=== PATIENT | female | born 1985 | race African-American/Black ===

== ENCOUNTER 2019-01-20 12:50 | Emergency (ER) | payer SELFPAY ==
[2019-01-20 13:17] VITALS: BMI 23.3
[2019-01-20 13:50] LABS: URINE APPEARANCE CLEAR; URINE BILIRUBIN NEGATIVE (NEGATIVE); URINE COLOR YELLOW; URINE GLUCOSE (UA) NEGATIVE (NEGATIVE); URINE KETONE TRACE (NEGATIVE); URINE LEUK ESTERASE NEGATIVE (NEGATIVE); URINE NITRITE NEGATIVE (NEGATIVE); URINE PROTEIN NEGATIVE (NEGATIVE)
[2019-01-20] MEDS ORDERED: SODIUM CHLORIDE 1,000 ML IV STA (13:56)
[2019-01-20 14:06] LABS: BASO % 0.8 % (0-2.0); EOS % 1.8 % (0-4.5); HEMATOCRIT 40.6 % (32.4-45.2); HEMOGLOBIN 13.6 GM/dL (10.7-15.3); LYMPH % 30.2 % (8-40); MCH 29.5 pg (25.7-33.7); MCHC 33.6 g/dl (32.0-36.0); MEAN PLT VOLUME 8.6 fl (7.5-11.1); MONO % 5.6 % (3.8-10.2); NEUT % 61.6 % (42.8-82.8); PLATELET COUNT 318 K/MM3 (134-434); RBC 4.61 M/mm3 (3.60-5.2); RDW 13.4 % (11.6-15.6); WHITE BLOOD COUNT 6.7 K/mm3 (4.0-10.0)
--- NOTE | 2019-01-20 14:33 | PDOC ---
History of Present Illness - General Chief Complaint: Pain, Acute Stated Complaint: L ABDOMINAL PAIN Time Seen by Provider: 01/20/19 13:33 History Source: Patient Exam Limitations: No Limitations - History of Present Illness Travel History: No Initial Comments: 01/20/19 14:03 33-year-old female presents to ED with complaints of right suprapubic pain for the past week worsening in severity present even when resting. Patient states took a test 1-2 weeks ago which was positive since she missed her menstrual cycle which was due the . Patient states has not seen [facility] [employer] [facility] nor has she had an ultrasound for this . Patient denies any vaginal bleeding, back pain urinary complaints, vaginal discharge. Patient denies history of ectopic Timing/Duration: reports: getting worse Quality: reports: mild, cramping, sharpness Abdominal Pain Onset Location: reports: suprapubic Pain Radiation: reports: RLQ, flank Activities at Onset: reports: none Aggravating Factors: improves with: None Alleviating Factors: improves with: None Past History - Travel Traveled outside of the country in the last 30 days: No Close contact w/someone who was outside of country & ill: No - Past Medical History Allergies/Adverse Reactions: Allergies Allergy/AdvReac Type Severity Reaction Status Date / Time diphenhydramine Allergy Verified 01/20/19 13:18 [From Benadryl] doxycycline Allergy Verified 01/20/19 13:18 latex Allergy Verified 01/20/19 13:18 metoclopramide [From Reglan] Allergy Verified 01/20/19 13:18 peanut Allergy Verified 01/20/19 13:18 watermelon Allergy Verified 01/20/19 13:18 COPD: No - Reproductive History Is Patient Now?: Yes - Suicide/Smoking/Psychosocial Hx Smoking History: Never smoked Information on smoking cessation initiated: No Hx Alcohol Use: No Drug/Substance Use Hx: No Patient Lives Alone: No Lives with/in: spouse/SO Review of Systems - Review of Systems Able to Perform ROS?: Yes Constitutional: No: Symptoms Reported ABD/GI: Yes: Abdominal cramping : No: Symptoms Reported Musculoskeletal: No: Symptoms Reported Integumentary: No: Symptoms Reported Neurological: No: Headache *Physical Exam - Vital Signs Last Vital Signs Temp Pulse Resp BP Pulse Ox 98.5 F 82 110/63 96 01/20/19 13:15 01/20/19 13:15 01/20/19 13:15 01/20/19 13:15 - Physical Exam General Appearance: Yes: Nourished, Appropriately Dressed. No: Apparent Distress HEENT: negative: Pale Conjunctivae Neck: positive: Normal Thyroid Respiratory/Chest: positive: Lungs Clear, Normal Breath Sounds. negative: Respiratory Distress, Accessory Muscle Use Cardiovascular: positive: Regular Rhythm, Regular Rate. negative: Murmur Gastrointestinal/Abdominal: positive: Normal Bowel Sounds, Soft, Tenderness (+ right suprapubic mild right lower quadrant and right flank pain). negative: Distended Musculoskeletal: negative: CVA Tenderness Extremity: positive: Normal Inspection Integumentary: positive: Normal Color, Warm, Moist Neurologic: positive: Motor Strength 5/5 ( ambulatory) ED Treatment Course - LABORATORY CBC & Chemistry Diagram: 01/20/19 13:50 01/20/19 13:50 - ADDITIONAL ORDERS Additional order review: Laboratory Results 01/20/19 01/20/19 13:35 13:35 Beta HCG, Quant Cancelled Urine Color Yellow Urine Appearance Clear Urine pH 5.0 Ur Specific [place] 1.026 Urine Protein Negative Urine Glucose (UA) Negative Urine Ketones Trace H Urine Blood Negative Urine Nitrite Negative Urine Bilirubin Negative Urine Urobilinogen 1.0 Ur Leukocyte Esterase Negative - RADIOLOGY Radiology Studies Ordered: Category Date Time Status TRANSVAGINAL US PREG [US] Stat Ultrasound 01/20/19 13:55 Ordered Medical Decision Making - Medical Decision Making 01/20/19 14:05 Right suprapubic pain worsening over the past week without associated symptoms such as urinary or vaginal complaints. Patient is currently 5-6 weeks based on her LMP Exam patient with right suprapubic tenderness on exam, vital signs stable no CVA tenderness Plan: CBC, comp, beta hCG, urine analysis urine culture and ultrasound to rule out ectopic, appendicitis 01/20/19 14:41 Laboratory Tests 01/20/19 01/20/19 13:35 13:50 WBC 6.7 Hgb 13.6 Hct 40.6 Absolute Neuts (auto) 4.1 Urine Ketones Trace H Urine Nitrite Negative Ur Leukocyte Esterase Negative Ultrasound shows a single intrauterine gestational sac and pole estimating 5 weeks 6 days and crown-rump length. heart rate cannot be detected that may be due to size a demise. Correlation with serial quantitative serum beta hCG and close follow-up ultrasound as needed for further evaluation. Simple cyst/corpus luteum cyst in the right ovary measuring 2 cm. Left ovary was not visualized. 01/20/19 14:41 01/20/19 15:08 Laboratory Tests 01/20/19 13:50 Sodium 137 Potassium 3.9 Chloride 105 Carbon Dioxide 24 Anion Gap 8 BUN 9.3 Creatinine 0.7 Random Glucose 75 Calcium 9.3 Total Bilirubin 0.6 AST 14 L ALT 15 Alkaline Phosphatase 56 Total Protein 8.0 Albumin 4.5 Beta HCG, Quant 90629.8 Pt states will return here on Tuesday for repeat u/s and/or repeat bhcg. Pt will be given tylenol and told to take the same at home for discomfort. pt aslo recommended to drink more fluids *DC/Admit/Observation/Transfer Diagnosis at time of Disposition: Abdominal pain during intrauterine - Discharge Dispostion Disposition: HOME Condition at time of disposition: Good - Referrals - Patient Instructions Printed Discharge Instructions: DI for Abdominal Pain -- Early Additional Instructions: Take tylenol for pain. Drink plenty of fluids . Return here in 2 days for repeat ultrasound/ blood work - Post Discharge Activity
[2019-01-20 15:05] LABS: ALBUMIN 4.5 g/dl (3.4-5.0); BILIRUBIN,TOTAL 0.6 mg/dL (0.2-1); BLOOD UREA NITROGEN 9.3 mg/dL (7-18); CALCIUM 9.3 mg/dL (8.5-10.1); CREATININE 0.7 mg/dL (0.55-1.3); POTASSIUM 3.9 mmol/L (3.5-5.1)
[2019-01-20] MEDS ORDERED: ACETAMINOPHEN 325 MG TABLET (FP) PO ONE (15:12)
[2019-01-20] MEDS ORDERED: ACETAMINOPHEN 325 MG TABLET (FP) ONE (15:16)
[2019-01-20 15:18] VITALS: BP 115/75; PULSE 85; TEMP 98
== END 2019-01-20 15:25 | disposition home or self-care (01) ==
LOC: JER 12:50
PROC: 3E0337Z Introduction of Electrolytic and Water Balance Substance into Peripheral Vein, Percutaneous Approach (ICD-10-PCS; principal; 2019-01-20)
DX: O26.891 Other specified pregnancy related conditions, first trimester (principal); R10.31 Right lower quadrant pain; O34.81 Maternal care for other abnormalities of pelvic organs, first trimester; N83.291 Other ovarian cyst, right side; Z3A.01 Less than 8 weeks gestation of pregnancy
CPT/HCPCS: 36415; 76817-TC; 80053; 81003; 84702; 85025; 87086; 99283-25; J7030